=== PATIENT | female | born 1980 | race American Indian/Alaskan Native ===

== ENCOUNTER 2021-09-05 06:03 | Day surgery (SDC) | payer BC ==
--- NOTE | 2021-09-04 22:24 | Short Stay Summary ---
Short Stay Documentation Date of service: 09/05/21 Narrative H&P: Pt here for permanent sterilization and management of DUB and hyperplasia. No changes to H&P - History Principal diagnosis: Abnormal uterine bleeding, Undesired fertility H&P: obtained from office Past Medical History: No medical history Past Surgical History: No surgical history Social history: single - Allergies and Medications Current Medications: Allergies No Known Allergies Allergy (Unverified 08/29/21 15:05) Home Medications Medication Instructions Recorded Confirmed Last Taken Type No Known Home Medications [No 08/29/21 08/29/21 Unknown History Reported Home Medications] Active Medications Acetaminophen (Acetaminophen 500 Mg Tab) 1,000 mg PO PREOP HEBER Celecoxib (Celecoxib 200 Mg Cap) 200 mg PO PREOP NR Stop: 09/05/21 23:59 Gabapentin (Gabapentin 300 Mg Cap) 300 mg PO PREOP NR Stop: 09/05/21 23:59 Lactated Ringer's (Lactated Ringers) 1,000 mls @ 100 mls/hr IV DIRECT HEBER Stop: 09/05/21 23:59 Midazolam HCl (Midazolam 2 Mg/2 Ml Inj) 2 mg IV PREOP NR Stop: 09/05/21 23:59 Scopolamine (Scopolamine Transdermal Patch 72 Hr) 1 each TD PREOP NR Stop: 09/05/21 23:59 - Physical exam General appearance: no acute distress Integumentary: no rash HEENT: Atraumatic Lungs: Clear to auscultation Breasts: deferred Heart: Regular rate, Normal S1, Normal S2 Gastrointestinal: normal, normoactive bowel sounds Female Genitourinary: normal Rectal Exam: deferred Extremities: no ischemia - Brief post op/procedure progress note Date of procedure: 09/05/21 Pre-op diagnosis: Undesired fertility, dysfunctional uterine bleeding with hyperplasia Post-op diagnosis: same Procedure: D&C hysteroscopy, bilateral laparoscopic salpingectomy Anesthesia: GETA Findings: Normal-appearing uterus tubes and ovaries Surgeon: SISI VINCENT Estimated blood loss: 50-100ml Pathology: list (1, endometrial curettings 2, bilateral fallopian tubes) Specimen disposition: to lab Condition: stable - Hospital course Hospital course: Unremarkable - Disposition Condition at discharge: Good Disposition: 01 HOME / SELF CARE / HOMELESS Short Stay Discharge Plan Activity: advance as tolerated Weight Bearing Status: Weight Bear as Tolerated Diet: regular Follow up with: SISI VINCENT MD [Staff Physician] - 14 Days Prescriptions: Ibuprofen [Motrin] 800 mg PO Q8HR PRN #30 tablet PRN Reason: Pain, Mild (1-3) HYDROcodone/APAP 5-325 [[place] 5/325] 2 each PO Q6HR PRN #30 tablet PRN Reason: Pain
[~2021-09-05 06:03] MED LIST: ACETAMINOPHEN 500 MG TAB PO SCH; CELECOXIB 200 MG CAP PO NR; GABAPENTIN 300 MG CAP PO NR; LACTATED RINGERS 1,000 ML IV SCH; MIDAZOLAM 2 MG/2 ML INJ IV NR; SCOPOLAMINE TRANSDERMAL PATCH 72 HR TD NR
[2021-09-05] MEDS ORDERED: ROCURONIUM 50 MG/5 ML INJ IV ONE (07:12)
[2021-09-05] MEDS ORDERED: LIDOCAINE MPF (2%) 20 MG/1 ML VIAL 5 ML ONE (07:12)
[2021-09-05] MEDS ORDERED: fentaNYL 100 MCG/2 ML INJ ONE (07:13)
[2021-09-05] MEDS ORDERED: propofoL 200 MG/20 ML VIAL IV ONE (07:13)
--- NOTE | 2021-09-05 07:19 | Anesthesia Day of Surgery ---
Anesthesia Day of Surgery - Day of Surgery Patient Examined: Yes Patient H&P Reviewed: Yes Patient is NPO: Yes
--- NOTE | 2021-09-05 07:19 | Anesthesia Consultation ---
Anesthesia Consult and Med Hx Date of service: 09/05/21 - Airway Anesthetic Teeth Evaluation: Good ROM Head & Neck: Adequate Mental/Hyoid Distance: Adequate Mallampati Class: Class II Intubation Access Assessment: Probably Good - Pre-Operative Health Status ASA Pre-Surgery Classification: ASA2 Proposed Anesthetic Plan: General - Pulmonary Hx Asthma: Yes ( CHILD-NOT NOW) - Central Nervous System Hx Back Pain: Yes (AND NECK PAIN) Hx Psychiatric Problems: No - Hematic Hx Anemia: Yes Hx Sickle Cell Disease: No - Other Systems Hx Alcohol Use: Yes (OCC.) Hx Substance Use: No Hx Cancer: No
[2021-09-05] MEDS ORDERED: BUPIVACAINE/PF (0.25%) 2.5 MG/ML 30 ML VIAL INFILTRATI ONE ×2 (07:27→09:22)
[2021-09-05] MEDS ORDERED: ONDANSETRON 4 MG/2 ML INJ IV PRN (08:00)
[2021-09-05] MEDS ORDERED: HYDROmorphone 0.5 MG/0.5 ML INJ IV PRN (08:00)
[2021-09-05] MEDS ORDERED: oxyCODONE /ACETAMINOPHEN 5-325MG TAB PO PRN (08:30)
[2021-09-05] MEDS ORDERED: dexAMETHasone 20 MG/5 ML VIAL ONE (09:09)
[2021-09-05] MEDS ORDERED: GLYCOPYRROLATE 0.4 MG/2 ML INJ ONE (09:09)
[2021-09-05] MEDS ORDERED: ONDANSETRON 4 MG/2 ML INJ ONE (09:09)
[2021-09-05] MEDS ORDERED: NEOSTIGMINE 10MG/10 ML INJ MDV ONE (09:09)
[2021-09-05] MEDS ORDERED: KETOROLAC 30 MG/1 ML INJ ONE (09:09)
[2021-09-05] MEDS ORDERED: SODIUM CHLORIDE 0.9% IRRIG SOLN 2000 ML IR ONE (09:23)
--- NOTE | 2021-09-05 09:49 | Operative Report ---
Operative Report Operative Report: Preoperative diagnosis: 1. Undesired fertility, 2. DU B with hyperplasia Postoperative diagnosis: Same Procedure: 1. Bilateral laparoscopic salpingectomy, 2. D&C hysteroscopy Surgeon: Aleida Ho Anesthesia: General EBL: Minimal IV fluids: 1000 mL Urine output: 50 mL Findings: Normal uterus tubes and ovaries Specimens: Right and left fallopian tubes, endometrial curettings Complications: None The patient was properly identified as herself. She was then taken to the OR with IV running and in place. She was given general anesthesia without difficulty. She was placed in a dorsal lithotomy position. She was then prepped and draped in normal sterile fashion. Attention was turned to the patient's vagina. Her bladder was drained of clear urine with a red rubber catheter. The speculum was then placed the patient's vagina. The cervix was visualized and grasped with tenaculum. The cervix was then gently dilated with Kamron Moctezuma dilators up to approximately 30 mm. The hysteroscope was then inserted and the uterine cavity was visualized. There were no obvious abnormalities except for some thickened tissue. The hysteroscope was removed and sharp curettage was performed until there was a gritty texture noted in all 4 quadrants of the uterus. The acorn cannula was then inserted. The surgeon's gloves were changed and attention turned to the patient's abdomen. A small incision was made in the patient's umbilicus incision a 5 mm trocar was placed. The laparoscope confirmed intra-abdominal placement. The abdomen was insufflated with CO2 gas to approximately 25 mmHg. Both fallopian tubes were identified. With direct visualization a second trocar was placed through an incision in the left lower quadrant. Both tubes were found and followed out to the fimbriated ends. Each tube was cauterized at the portion nearest the cornua, then cauterized across the broad ligament until the tube was completely detached. There was excellent hemostasis at the end of this portion of the procedure. Each tube was handed off for pathology. At this point the abdomen was deflated. All instruments were then removed from the abdomen. The incisions were then closed with 4-0 Monocryl. The incisions were also injected with quarter percent Marcaine. The patient tolerated the procedure well she was then awakened and taken recovery in stable condition. Sponge needle and instrument counts were correct 2.
[2021-09-05 12:09] VITALS: BP 126/75
--- NOTE | 2021-09-05 14:13 | Post Anesthesia Evaluation ---
- Post Anesthesia Evaluation Patient Participated: Yes Airway Patent: Yes Stable Respiratory Function: Yes Nausea/Vomiting: No Temp > 96.8F: Yes Pain Manageable: Yes Adequeate Hydration: Yes Anesthesia Complications: No
== END 2021-09-05 11:00 | disposition home or self-care (01) ==
LOC: OR 06:03
PROVIDERS: ATTEND Obstetrics & Gynecology
DX: Z30.2 Encounter for sterilization (principal); N93.8 Other specified abnormal uterine and vaginal bleeding; N85.00 Endometrial hyperplasia, unspecified; G43.909 Migraine, unspecified, not intractable, without status migrainosus; J45.909 Unspecified asthma, uncomplicated; Z79.899 Other long term (current) drug therapy; Z72.89 Other problems related to lifestyle; Z98.890 Other specified postprocedural states
CPT/HCPCS: 58558; 58670; 81025; 88302; 88305; J1100; J1815; J1885; J2250; J2405; J2704; J2710; J3010; J3490; J7120